=== PATIENT | female | born 1980 | race Caucasian/White ===

== ENCOUNTER 2020-09-28 21:12 | Emergency (ER) | payer BC ==
--- OUTSIDE RECORDS SUMMARY | 2020-09-28 21:16 | XMS REPORT | Continuity of Care Document ---
:1980 Author Organization [facility] t Address [address] [place] [address] Care Team Providers Name Role Phone Yahir COLLAZO Attending Clinician Unavailable Sandy Jeffrey NP Attending Clinician Problems This patient has no known problems. Allergies, Adverse Reactions, Alerts This patient has no known allergies or adverse reactions. Medications This patient has no known medications. Procedures This patient has no known procedures. Encounters Start End Encounter Admission Attending Care Care Encounter Source Date/Time Date/Time Type Type Clinicians Facility Department ID 2020-06-17 2020-06-17 Letter Shani Sinclair [id number] 00:00:00 00:00:00 (Out) [facility] [id number] [facility] [id number] 2020-06-16 2020-06-16 Emergency SAUL Jeffrey [id number] 14:38:00 16:58:00 Yee Rojo [id number] [place] [id number] [place] [id number] Results This patient has no known results.
[2020-09-28 22:41] LABS: Urine Blood 2+ (NEG); Urine Glucose NEGATIVE (NEG); Urine Protein NEGATIVE (NEG); Urine Specific Gravity >1.030 (1.005-1.030)
[2020-09-28] MEDS ORDERED: FENTANYL CITR 100 MCG/2 ML ONE (22:44)
[2020-09-28] MEDS ORDERED: ONDANSETRON 4 MG/2 ML VIAL ONE (22:44)
[2020-09-28 22:56] LABS: Absolute Lymphocytes (CBC) 2.2 K/uL (0.7-4.9); Basophils % 0.5 % (0-1.3); Hematocrit 42.7 % (36.0-45.0); MPV 8.5 fL (7.6-11.3); RBC Red Blood Cell Count 4.74 M/uL (3.86-4.86)
[2020-09-28 23:05] LABS: ALT/SGPT 28 U/L (12-78); AST/SGOT 20 U/L (15-37); Albumin 3.6 g/dL (3.4-5.0); Alkaline Phosphatase 74 U/L (45-117); BUN Blood Urea Nitrogen 20 mg/dL (7-18); Bicarbonate 27 mmol/L (21-32); Bilirubin Direct < 0.1 mg/dL (0-0.2); Bilirubin Total 0.2 mg/dL (0.2-1.0); Glucose Level 80 mg/dL (74-106); Lipase 128 U/L (73-393); Potassium 3.8 mmol/L (3.5-5.1); Protein, Total 6.9 g/dL (6.4-8.2); Sodium Level 141 mmol/L (136-145)
[2020-09-28 23:22] LABS: Urine Bacteria 20-50 /HPF (<20); Urine Mucus 2+ /HPF (NONE SEEN)
--- NOTE | 2020-09-29 00:14 | ER ---
Nurse's Notes [facility] Name: Terese Aiken Age: 40 yrs Sex: Female : 1980 Arrival Date: 09/28/2020 Time: 21:15 Bed 14 Private MD: Diagnosis: Colitis;Generalized abdominal pain;Urinary tract infection, site not specified Presentation: 09/28 21:22 Chief complaint: Patient states: Umbilical pain off/on for a couple months. Pain ll1 suddenly got severe today at work 1 hour [employer]. +nausea and near syncope feeling for the past hour. No known fever. Coronavirus screen: Client denies travel out of the [place] in the last 14 days. At this time, the client does not indicate any symptoms associated with coronavirus-19. Ebola Screen: Patient denies travel to an Ebola-affected area in the 21 days before illness onset. Initial Sepsis Screen: Does the patient meet any 2 criteria? HR > 90 bpm. No. Patient's initial sepsis screen is negative. Does the patient have a suspected source of infection? Yes: Acute abdominal pain. Risk Assessment: Do you want to hurt yourself or someone else? Patient reports no desire to harm self or others. Onset of symptoms was September 28, 2020. 21:22 Method Of Arrival: Ambulatory ll1 21:22 Acuity: ETHAN 3 ll1 Historical: - Allergies: 21:25 Amoxicillin; ll1 21:25 Hydrocodone-Acetaminophen; ll1 21:25 shrimp; ll1 - PMHx: 21:25 Anxiety; ll1 - PSHx: 21:25 Hernia repair; Tubal ligation; ll1 - Immunization history:: Flu vaccine is up to date. - Social history:: Smoking status: Patient reports the use of cigarette tobacco products, smokes one pack cigarettes per day. Assessment: 21:30 General: Appears in no apparent distress. comfortable, Behavior is calm, cooperative, jb4 appropriate for age. Pain: Complains of pain in umbilical area and left lower quadrant Pain radiates to left low back Pain currently is 8 out of 10 on a pain scale. 21:30 Neuro: Level of Consciousness is awake, alert, obeys commands, Oriented to person, jb4 place, time, situation. Cardiovascular: Patient's skin is warm and dry. Respiratory: Airway is patent Respiratory effort is even, unlabored, Respiratory pattern is regular, symmetrical. GI: Abdomen is flat, non-distended, Reports lower abdominal pain, nausea. : No signs and/or symptoms were reported regarding the genitourinary system. EENT: No signs and/or symptoms were reported regarding the EENT system. Derm: Skin is intact, Skin is pink, warm \T\ dry. Musculoskeletal: Circulation, motion, and sensation intact. Range of motion: intact in all extremities. 23:00 Reassessment: Patient appears in no apparent distress at this time. Patient and/or jb4 family updated on plan of care and expected duration. Pain level reassessed. Patient is alert, oriented x 3, equal unlabored respirations, skin warm/dry/pink. 09/29 00:57 Reassessment: Patient appears in no apparent distress at this time. Patient and/or jb4 family updated on plan of care and expected duration. Pain level reassessed. Patient is alert, oriented x 3, equal unlabored respirations, skin warm/dry/pink. Vital Signs: 09/28 21:22 BP 127 / 85; Pulse 106; Resp 16; Temp 98.1; Pulse Ox 98% ; Weight 62.14 kg; Height 5 ll1 ft. 5 in. (165.10 cm); Pain 8/10; 23:15 BP 125 / 97; Pulse 87; Resp 16; Pulse Ox 100% on R/A; jb4 09/29 00:45 BP 103 / 77; Pulse 89; Resp 16; Pulse Ox 98% on R/A; jb4 09/28 21:22 Body Mass Index 22.80 (62.14 kg, 165.10 cm) ll1 ED Course: 09/28 21:15 Patient arrived in ED. mr 21:24 Triage completed. ll1 21:25 Arm band placed on Patient placed in an exam room, on a stretcher. ll1 21:28 Scooter Oconnell PA is PHCP. jr8 21:28 Tino Hall MD is Attending Physician. jr8 21:33 Hunter Whitt, ZAY is Primary Nurse. jb4 22:15 Urine collected: clean catch specimen, clear, nikita colored. jp3 22:28 Missed attempt(s): 22 gauge in right wrist. Bleeding controlled, band aid applied, jp3 catheter tip intact. 22:34 Initial lab(s) drawn, by me, sent to lab. Inserted saline lock: 22 gauge in left jp3 antecubital area, using aseptic technique. Blood collected. 22:34 Patient maintains SpO2 saturation greater than 95% on room air. jp3 22:37 Placed in gown. Bed in low position. Call light in reach. Side rails up X 1. Warm jp3 blanket given. Verbal reassurance given. Pulse ox on. NIBP on. 23:07 CT Abd/Pelvis - IV Contrast Only In Process Unspecified. EDMS 09/29 00:12 Joseph Michaels MD is Referral Physician. jr8 00:12 Rodolfo Moya MD is Referral Physician. jr8 Administered Medications: 09/28 22:38 Drug: Zofran (Ondansetron) 4 mg Route: IVP; Site: left antecubital; vg1 22:39 Drug: fentaNYL (PF) 50 mcg Route: IVP; Site: left antecubital; vg1 Point of Care Testing: Urine : 22:38 hCG Reading: Negative; Control Reading: Positive; jp3 Outcome: 09/29 00:13 Discharge ordered by . jr8 00:58 Patient left the ED. jb4 Signatures: Dispatcher [employer] EDCO SandovalRadha mr Scooter Oconnell PA PA jr8 Hunter Whitt, RN RN jb4 Agustín Jennings jp3 Mago Prado, ZAY RN vg1 Tom Eubanks RN RN ll1
--- NOTE | 2020-09-29 00:14 | EDPHYS ---
Physician Documentation [facility] Name: Terese Aiken Age: 40 yrs Sex: Female : 1980 Arrival Date: 09/28/2020 Time: 21:15 Bed 14 Private MD: ED Physician Tino Hall HPI: 09/28 22:17 This 40 yrs old Female presents to ER via Ambulatory with complaints of jr8 Abdominal Pain. 22:17 The patient presents with abdominal pain in the epigastric area, in the lower abdomen, jr8 in the left upper quadrant, in the left lower quadrant, L Flank. Onset: The symptoms/episode began/occurred 4 month(s) ago. Associated signs and symptoms: Pertinent positives: nausea. Patient reports diffuse L sided abd pain that has been present for a few months. Today pain increased to the point where she could not stand. She reports hernia repair 9 years ago. . Historical: - Allergies: 21:25 Amoxicillin; ll1 21:25 Hydrocodone-Acetaminophen; ll1 21:25 shrimp; ll1 - PMHx: 21:25 Anxiety; ll1 - PSHx: 21:25 Hernia repair; Tubal ligation; ll1 - Immunization history:: Flu vaccine is up to date. - Social history:: Smoking status: Patient reports the use of cigarette tobacco products, smokes one pack cigarettes per day. ROS: 22:19 Cardiovascular: Negative for chest pain, palpitations, and edema, Respiratory: Negative jr8 for shortness of breath, cough, wheezing, and pleuritic chest pain, : Negative for injury, bleeding, discharge, and swelling, MS/Extremity: Negative for injury and deformity, Neuro: Negative for headache, weakness, numbness, tingling, and seizure. 22:19 Abdomen/GI: Positive for abdominal pain, nausea. 22:19 Back: Positive for flank pain, on the left. Exam: 22:20 Chest/axilla: Normal chest wall appearance and motion. Nontender with no deformity. jr8 No lesions are appreciated. Cardiovascular: Regular rate and rhythm with a normal S1 and S2. No gallops, murmurs, or rubs. Normal PMI, no JVD. No pulse deficits. Respiratory: Lungs have equal breath sounds bilaterally, clear to auscultation and percussion. No rales, rhonchi or wheezes noted. No increased work of breathing, no retractions or nasal flaring. Skin: Warm, dry with normal turgor. Normal color with no rashes, no lesions, and no evidence of cellulitis. MS/ Extremity: Pulses equal, no cyanosis. Neurovascular intact. Full, normal range of motion. 22:20 Abdomen/GI: Inspection: abdomen appears normal, Bowel sounds: diminished, in all quadrants, Palpation: moderate abdominal tenderness, involuntary guarding, is elicited in the epigastric area, suprapubic area, posterior aspect of left lateral abdomen, left upper quadrant and left lower quadrant, Indicators: McBurney's point is not tender, Partida's sign is negative. 22:21 Back: pain, CVA tenderness, that is moderate, is noted on the left. jr8 Vital Signs: 21:22 BP 127 / 85; Pulse 106; Resp 16; Temp 98.1; Pulse Ox 98% ; Weight 62.14 kg; Height 5 ll1 ft. 5 in. (165.10 cm); Pain 8/10; 23:15 BP 125 / 97; Pulse 87; Resp 16; Pulse Ox 100% on R/A; jb4 09/29 00:45 BP 103 / 77; Pulse 89; Resp 16; Pulse Ox 98% on R/A; jb4 09/28 21:22 Body Mass Index 22.80 (62.14 kg, 165.10 cm) ll1 MDM: 09/28 21:28 Patient medically screened. jr8 22:22 Data reviewed: vital signs, nurses notes, lab test result(s), radiologic studies. 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 Interpretation: normal. 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 00:10 ED course: Patient reassessed. No umbilical pain. No guarding, rigidity, or rebounding. jr8 No pain with palpation at this time. No signs of incarceration or strangulation. Will have patient f/u with GI and surgery. Will put on Abx because of the nonspecific colitis. Patient knows to come back if worse . 09/28 21:29 Order name: Basic Metabolic Panel [facility] 09/28 21:29 Order name: CBC with Diff [facility] 09/28 21:29 Order name: Hepatic Function [facility] 09/28 21:29 Order name: Lipase; Complete Time: 23:26 [facility] 09/28 21:29 Order name: Urine Microscopic Only; Complete Time: 23:26 [facility] 09/28 21:29 Order name: Basic Metabolic Panel; Complete Time: 23:26 [facility] 09/28 21:29 Order name: CBC with Automated Diff; Complete Time: 23:04 [facility] [place] 09/28 21:29 Order name: Liver (Hepatic) Function; Complete Time: 23:26 [facility] 09/28 22:34 Order name: Urine Dipstick--Ancillary (enter results) [facility] 09/28 22:34 Order name: Urine --Ancillary (enter results) [facility] 09/28 22:35 Order name: Urine Dipstick-Ancillary; Complete Time: 22:46 [facility] 09/28 22:35 Order name: Urine --Ancillary; Complete Time: 22:46 [facility] 09/28 23:23 Order name: Urine Culture [facility] [place] 09/29 00:44 Order name: CREATININE WHOLE BLOOD; Complete Time: 00:50 [facility] 09/28 21:29 Order name: IV Saline Lock; Complete Time: 22:38 [facility] 09/28 21:29 Order name: Labs collected and sent; Complete Time: 22:38 [facility] 09/28 21:29 Order name: Urine Test (obtain specimen); Complete Time: 22:38 [facility] 09/28 21:29 Order name: Urine Dipstick-Ancillary (obtain specimen); Complete Time: 22:38 [facility] 09/28 22:06 Order name: CT Abd/Pelvis - IV Contrast Only [facility] Administered Medications: 09/28 22:38 Drug: Zofran (Ondansetron) 4 mg Route: IVP; Site: left antecubital; vg1 22:39 Drug: fentaNYL (PF) 50 mcg Route: IVP; Site: left antecubital; vg1 Point of Care Testing: Urine : 22:38 hCG Reading: Negative; Control Reading: Positive; jp3 Disposition: 09/29 01:35 Co-signature as Attending Physician, Tino Hall MD. rn Disposition: 09/29/20 00:13 Discharged to Home. Impression: Colitis, Generalized abdominal pain, Urinary tract infection, site not specified. - Condition is Stable. - Discharge Instructions: Abdominal Pain, Adult, Urinary Tract Infection, Adult, Colitis. - Prescriptions for Bentyl 20 mg Oral Tablet - take 1 tablet by ORAL route every 6 hours As needed; 20 tablet. Cipro 500 mg Oral Tablet - take 1 tablet by ORAL route every 12 hours for 10 days; 20 tablet. - Medication Reconciliation Form, Thank You Letter, Antibiotic Education, Prescription Opioid Use form. - Follow up: Joseph Michaels MD; When: 10 - 14 days; Reason: Recheck today's complaints, Continuance of care, Re-evaluation by your physician. Follow up: Rodolfo Moya MD; When: 5 - 6 days; Reason: Recheck today's complaints, Continuance of care, Re-evaluation by your physician. - Problem is new. - Symptoms have improved. Signatures: Dispatcher [employer] EDMS Tino Hall MD MD rn Roszak, Josh, PA PA jr8 Hunter Whitt RN RN jb4 Mago Prado RN RN vg1 Tom Eubanks RN RN ll1 Corrections: (The following items were deleted from the chart) 00:51 00:13 09/29/2020 00:13 Discharged to Home. Impression: Colitis; Generalized abdominal jr8 pain. Condition is Stable. Forms are Medication Reconciliation Form, Thank You Letter, Antibiotic Education, Prescription Opioid Use. Follow up: Joseph Michaels; When: 10 - 14 days; Reason: Recheck today's complaints, Continuance of care, Re-evaluation by your physician. Follow up: Rodolfo Moya; When: 5 - 6 days; Reason: Recheck today's complaints, Continuance of care, Re-evaluation by your physician. Problem is new. Symptoms have improved. jr8 00:58 00:51 09/29/2020 00:13 Discharged to Home. Impression: Colitis; Generalized abdominal jb4 pain; Urinary tract infection, site not specified. Condition is Stable. Discharge Instructions: Abdominal Pain, Adult, Colitis. Prescriptions for Bentyl 20 mg Oral Tablet - take 1 tablet by ORAL route every 6 hours As needed; 20 tablet, Cipro 500 mg Oral Tablet - take 1 tablet by ORAL route every 12 hours for 10 days; 20 tablet. and Forms are Medication Reconciliation Form, Thank You Letter, Antibiotic Education, Prescription Opioid Use. Follow up: Joseph Michaels; When: 10 - 14 days; Reason: Recheck today's complaints, Continuance of care, Re-evaluation by your physician. Follow up: Rodolfo Moya; When: 5 - 6 days; Reason: Recheck today's complaints, Continuance of care, Re-evaluation by your physician. Problem is new. Symptoms have improved. jr8
[2020-09-29 01:05] VITALS: TEMP 98.1
[2020-09-29 01:08] VITALS: BP 103/77; O2SAT 98
--- NOTE | 2020-09-29 19:36 | RAD REPORT ---
EXAM DESCRIPTION: CT Abdomen and Pelvis COMPARISON: None. CLINICAL HISTORY: [facility] MAIN ABD PAIN TECHNIQUE: CT of the abdomen and pelvis was acquired with IV contrast material. Coronal and sagitt al reconstructions were obtained. Automated exposure control was utilized on this examination as a dose lowering technique. FINDINGS: Lung bases: Clear. Liver: A subcentimeter hypodensity is noted in the peripheral posterior right lobe likely representin g a benign cyst or hemangioma. Gallbladder and biliary: Decompressed gallbladder. Unremarkable biliary tree. Pancreas: Normal. Spleen: Normal. Adrenal glands: Normal adrenal glands. Kidneys: Normal kidneys Stomach and Small Bowel: The stomach and small bowel are normal. Urinary bladder: Normal. Uterus and Adnexa: Normal. Colon and Appendix: Mild ascending and transverse colon wall thickening. No evidence of appendicitis. Retroperitoneum and lymph nodes: Normal. Vascular: Normal. Peritoneal cavity: No ascites or free air. Musculoskeletal and soft tissues: Small fat-containing periumbilical hernia. A few omental vessels ar e also included. No aggressive bone lesions. No compression fracture. IMPRESSION: 1. Mild ascending and transverse colon wall thickening is nonspecific but could be seen with a mild infectious or inflammatory colitis. 2. A small periumbilical hernia contains fat and a few omental vessels. If there is pain at this loca tion, this could suggest omental infarction/strangulation of small omental vessels. 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 The interpreting radiologist is fully responsible for the content of the report.
== END 2020-09-29 00:58 | disposition home or self-care (01) ==
LOC: ER 21:12
DX: K52.9 Noninfective gastroenteritis and colitis, unspecified (principal); N39.0 Urinary tract infection, site not specified; F17.210 Nicotine dependence, cigarettes, uncomplicated; Z88.1 Allergy status to other antibiotic agents; Z88.5 Allergy status to narcotic agent; Z91.013 Allergy to seafood
CPT/HCPCS: 87088; 85025; 87086; 80048; 36415; 81025; 82565; 80076; 83690; 74177; Q9967; J3010; J2405; 81003; 81015; 96374; 96375; 99284

== ENCOUNTER 2020-12-10 08:04 | Day surgery (SDC) | payer BC ==
[2020-12-06 09:49] LABS: Absolute Lymphocytes (CBC) 1.1 K/uL (0.7-4.9); Basophils % 0.3 % (0-1.3); Hematocrit 42.6 % (36.0-45.0); Lymphocytes % 20.9 % (15.3-44.8); MPV 8.6 fL (7.6-11.3); RBC Red Blood Cell Count 4.79 M/uL (3.86-4.86)
[2020-12-06 09:57] LABS: BUN Blood Urea Nitrogen 19 mg/dL (7-18); Bicarbonate 27 mmol/L (21-32); Glucose Level 90 mg/dL (74-106); Potassium 4.6 mmol/L (3.5-5.1); Sodium Level 139 mmol/L (136-145)
--- NOTE | 2020-12-06 10:05 | RAD REPORT ---
EXAM DESCRIPTION: Tc Bello (2 Views)12/06/2020 9:55 am CLINICAL HISTORY: Preop COMPARISON: 2019 FINDINGS: The lungs appear clear of acute infiltrate. The heart is normal size IMPRESSION: No acute abnormalities displayed
[2020-12-10 08:27] LABS: Specific Gravity 1.015 (1.005-1.030)
[2020-12-10] MEDS ORDERED: CEFAZOLIN/SWI 1gm 1 GM/10 ML SYR ONE (08:55)
[2020-12-10] MEDS ORDERED: Ringers Lactate 1,000 ML IV ONE (08:55)
[2020-12-10] MEDS ORDERED: BUPIVACAINE 0.5% PF 10 ML VIAL ONE (09:29)
[2020-12-10] MEDS ORDERED: MIDAZOLAM HCL 2 MG/2 ML INJ ONE (09:43)
[2020-12-10] MEDS ORDERED: propofoL 200 MG/20 ML VIAL IV ONE (09:58)
[2020-12-10] MEDS ORDERED: LIDOCAINE 1% MPF 5 ML VIAL ONE (09:58)
[2020-12-10] MEDS ORDERED: FENTANYL CITR 100 MCG/2 ML ONE ×2 (09:58→10:13)
[2020-12-10] MEDS ORDERED: dexAMETHasone 10 MG/ML VIAL ONE (10:08)
[2020-12-10] MEDS ORDERED: KETOROLAC 30 MG/ML INJ ONE (10:08)
[2020-12-10] MEDS ORDERED: ONDANSETRON 4 MG/2 ML VIAL ONE (10:13)
--- NOTE | 2020-12-10 10:18 | P.BOP ---
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
[2020-12-10] MEDS ORDERED: Mastisol Adhesive Liq ONE (10:40)
--- NOTE | 2020-12-10 10:56 | DS ---
Diagnosis: Incarcerated incisional ventral hernia. Procedure: Open repair of incarcerated incisional ventral hernia with mesh. Disposition: Home. Activity: As tolerated. No heavy lifting. Plan: Follow up in my office in 1 week. Call for appointment at [phone]. Keep area dry for 48 hailee rs, then may shower. Keep Steri-Strips intact. RUBENS Voice ID: [id number] Report ID: [id number]
[2020-12-10] MEDS: HYDROMORPHONE HCL 1 MG/ML INJ ONE ×2 (10:58→11:03)
[2020-12-10 11:07] VITALS: O2SAT 98
[2020-12-10] MEDS: CODEINE 30MG/APAP 300MG TAB ONE ×2 (11:40→12:02)
--- NOTE | 2020-12-10 11:47 | OP ---
Date of Procedure: 12/10/2020 Surgeon: Rodolfo Moya MD Preoperative Diagnosis: Incarcerated umbilical hernia. Postoperative Diagnosis: Incarcerated incisional ventral hernia. Procedure: Open repair of incarcerated incisional ventral hernia with mesh. Anesthesia: General plus local. Mesh: Ventralex mesh. Complications: None. Indication: This is the case of a 40-year-old, who comes with a periumbilical lump. Benefits, alter natives, and risks of repair of umbilical/ventral hernia incisional and incarcerated fully explained, which include, but not limited to infection, bleeding, damage to adjacent structures, anesthesia com plication, recurrence, FL, and even . She also understands this may not relieve any symptoms. She might need more than one surgical intervention. She was also explained the possible use of mesh. Pros and cons of mesh placement were discussed with the patient. All the questions were answered t o her satisfaction. Given the mesh itself visually showing to the person and then after that, she ga ve us the consent to use mesh if needed. Procedure In Detail: The patient was brought to the operating room, placed in supine position. Anes thesia was without complication. A time-out was called. Abdomen was prepped and draped in usual andi rile fashion. Marcaine was fully . After that, incision was made. Incision was carried d own to fascia where we noticed this umbilical hernia. Umbilical hernia was opened. We noticed incar cerated omentum. Some of that have to be removed with the specimen and the rest retracted back into the abdominal cavity after tie and fully inspecting and making sure there was no bleeding. Fascial e dges were cleaned. We noticed the fascia is to be weak enough to warrant at least the mesh placement in that region. The fascia underneath was clean and then after that, I placed a Ventrale x mesh intraperitoneally and the strap coming through the incision. The mesh itself was secured to t he fascia using a Prolene in multiple locations. Then after that, we proceeded and then a pproximated the fascial edges in a [id number] fashion with #1 Vicryl since previous Prolene was bothering her touching them. Vicryl #1 placed in a [id number] fashion multiple times . The area was irrigated. A 3-0 chromic was used to close the subcutaneous tissue and 3-0 chromic i n subcuticular fashion with Steri-Strips on top. Sponge count and instrument counts correct. The pa tient tolerated the procedure well. The patient was sent to Recovery in stable condition. MIRTA/RYAN Voice ID: [id number] Report ID: [id number]
[2020-12-10] MEDS ORDERED: NALOXONE 0.4 MG/ML VIAL ONE (12:17)
[2020-12-10 13:01] VITALS: BP 103/63; TEMP 97.7
== END 2020-12-10 12:20 | disposition home or self-care (01) ==
LOC: OR 08:04
PROVIDERS: ATTEND Surgery
PROC: 0WUF0JZ Supplement Abdominal Wall with Synthetic Substitute, Open Approach (ICD-10-PCS; principal; 2020-12-10 09:45)
DX: K42.0 Umbilical hernia with obstruction, without gangrene (principal); F41.9 Anxiety disorder, unspecified; Z20.822 Contact with and (suspected) exposure to COVID-19
CPT/HCPCS: 85025; 80048; 36415; 81025; 88302; 71046; 49587; J2704; J2310; J2250; J3010 ×2; J1100; J1170; J0690; J7120; J2405; U0002